=== PATIENT | female | born 1940 | race Two or more races ===

== ENCOUNTER 2019-05-06 07:38 | Inpatient (IN) | payer MEDICARE, MEDICAID ==
[~2019-05-06] VITALS: Ht 160 cm; Wt 79.8 kg
[2019-05-06] MEDS ORDERED: CELECOXIB 100 MG CAPSULE ONE (08:05)
[2019-05-06] MEDS ORDERED: ACETAMINOPHEN 325 MG TABLET ONE (08:05)
[2019-05-06] MEDS ORDERED: oxyCODONE HCL SR 10MG TAB.SR.12H PO ONE (08:05)
[2019-05-06] MEDS ORDERED: MIDAZOLAM HCL 2 MG/2ML VIAL ONE (08:39)
[2019-05-06] MEDS ORDERED: SCOPOLAMINE HBR 1 EA PATCH.TD72 TD ONE (08:40)
[2019-05-06] MEDS ORDERED: MORPHINE SULFATE/PF 10 MG/10ML (1MG/ML) AMPUL ONE (08:40)
[2019-05-06] MEDS ORDERED: TRANEXAMIC ACID 3,000 MG in SODIUM CHLORIDE IRRIG SOLUTION 70 ML IR ONE (09:00)
[2019-05-06] MEDS ORDERED: FENTANYL PF 100MCG/2ML AMPUL ONE (10:34)
[2019-05-06 12:00] VITALS: BP 111/59
[2019-05-06] MEDS ORDERED: MAGNESIUM HYDROXIDE 30 ML UDC PO PRN (12:00)
[2019-05-06] MEDS ORDERED: diphenhydrAMINE HCL 25 MG CAPSULE PO PRN (12:00)
[2019-05-06] MEDS ORDERED: MAG HYDROX/AL HYDROX/SIMETH 30 ML UDC PO PRN (12:00)
--- NOTE | 2019-05-06 12:00 | NUR ---
RN MS 1 NOTES Received report from at bedside. Patient is s/p R RALPH, A/O x 4. Singaporean speaking with some Tristanian. Verbally responsive and able to make needs know. No sob noted. In room air and saturating well. No skin issues other than the surgery site. No edema in both upper and lower extremities. Complain of pain, described it as squeezing especially when moving and rate it 2/10. IV line on R wrist @20, intact, patent and flushed well.
[2019-05-06] MEDS ORDERED: BISACODYL SUPP (10 MG) 10 MG/SUPP.RECT SUPP.RECT RC PRN (12:30)
[2019-05-06] MEDS ORDERED: DOCUSATE SODIUM 250 MG CAPSULE PO PRN (12:30)
[2019-05-06] MEDS ORDERED: ACETAMINOPHEN 325 MG TABLET PO PRN (12:30)
[2019-05-06] MEDS ORDERED: ZOLPIDEM TARTRATE 5 MG TABLET PO PRN (12:30)
[2019-05-06] MEDS ORDERED: NALOXONE HCL 0.4 MG/ML AMPUL IV PRN (12:30)
[2019-05-06] MEDS ORDERED: SENNOSIDES 8.6 MG TABLET PO PRN (12:30)
[2019-05-06] MEDS: IV LR 1000 ML 1,000 ML IV PRN (12:45)
[2019-05-06] MEDS ORDERED: DICL75TA5 PO (12:48)
[2019-05-06] MEDS ORDERED: ASPI-605 PO (12:48)
[2019-05-06] MEDS ORDERED: METF-440 PO (12:48)
[2019-05-06] MEDS ORDERED: ATOR20TA PO (12:48)
[2019-05-06] MEDS ORDERED: LISI-603 PO (12:48)
[2019-05-06] MEDS ORDERED: LINA290C PO (12:48)
[2019-05-06] MEDS ORDERED: SITA100T PO (12:48)
[2019-05-06] MEDS ORDERED: TIZA4TAB5 PO (12:48)
[2019-05-06] MEDS ORDERED: ZOLP5TAB8 PO (12:48)
[2019-05-06] MEDS ORDERED: OXYCOD/APAP PO (12:48)
[2019-05-06] MEDS ORDERED: MYRBETRIQ PO (12:48)
[2019-05-06] MEDS ORDERED: CHOL200059 PO (12:48)
[2019-05-06] MEDS ORDERED: DICL100G16 (12:48)
[2019-05-06] MEDS ORDERED: AMLO2.5T4 PO (12:48)
--- NOTE | 2019-05-06 13:23 | NUR ---
RN NOTE PAGED SU LOVELACE THROUGH [employer]CHANGE FOR ADMITTING ORDERS AND MED RECON
--- NOTE | 2019-05-06 14:00 | NUR ---
RN NOTE RECEIVED A CALL BACK FROM SU LOVELACE NP. PER EQUIPMENT OPERATOR WAGE HAND, HE WILL SEE PATIENT SOON HE GETS A CHANCE.
[2019-05-06 16:00] VITALS: BP 123/63
[2019-05-06] MEDS: CEFAZOLIN 1 GM in IV D5W 50 ML IV SCH (17:23)
--- NOTE | 2019-05-06 17:29 | NUR ---
RN NOTE WEIGHT BEARING STATUS WAS NOT INDICATED IN DR KELLEY'S ORDER FORM. PAGED SAUL LOZA, PER PA - OK WITH WBAT. ORDER CARRIED OUT
[2019-05-06] MEDS ORDERED: HYDR-4385 PO (18:38)
--- NOTE | 2019-05-06 19:13 | NUR ---
RN NOTES: RECEIVED AWAKE ON BED, A/OX4, UKRAINIAN SPEAKING, CAN COMMUNICATE IN BRITISH, ON RA, AMBULATORY, RW G#20,ON LR AT 75 ML/HR ONGOING. S/P RIGHT HIP ARTHROPLASTY TODAY,WBAT, ORIENTED TO UNIT AND STAFF, BED LOW AND LOCKED, CALL LIGHT WITHIN EASY REACH,FALL,SAFETY, AND ASPIRATION PRECAUTION OBSERVED,ON RA SPO2-92%, KEEP ON CLOSE WATCH, NEEDS ANTICIPATED.FOR PT EVALUATION IN THE MORNING, SAI TO START TOMORROW AND REMOVE HERRERA CATH 05/07/19.
--- NOTE | 2019-05-06 19:15 | NUR ---
RN CLOSING NOTES Pt in bed, awake and A/0 x4. Moroccan speaking with limited Tamazight.No acute change of condition during am shift. All needs met. Pt endorsed to pm shift for continuity of care. Call light within reach.
[2019-05-06 20:00] VITALS: BP 129/64
[2019-05-06] MEDS: oxyCODONE IR immediate release 5 MG PO PRN (22:51)
--- NOTE | 2019-05-06 22:51 | NUR ---
RN NOTES: STILL AWAKE, ASSESSED IF SHE IS IN PAIN, SHE VERBALIZED 7/10 ON THE RIGHT HIP, OFFERED TO TAKE PAIN MEDICATION, SHE AGREED, BP-130/68, NON PHARMACOLOGIC INTERVENTION RENDERED, WARM BLANKET PROVIDED.
[2019-05-07] VITALS (7 sets, daily range): BP systolic 113–153; BP diastolic 54–75
[2019-05-07] MEDS: CEFAZOLIN 1 GM in IV D5W 50 ML IV SCH (01:23)
[2019-05-07] MEDS: IV LR 1000 ML 1,000 ML IV PRN (01:31)
--- NOTE | 2019-05-07 02:30 | NUR ---
RN NOTES: ABLE TO SLEEP AND REST, CALL LIGHT IWTHIN EASY REACH, KEPT MONITORED.
[2019-05-07] MEDS: oxyCODONE IR immediate release 5 MG PO PRN ×5 (04:12→18:26)
--- NOTE | 2019-05-07 04:17 | NUR ---
RN NOTES: AWAKE PAIN 11/10, REQUEST FOR HER PAIN MEDICATION, BP-113/54, NON PHARMACOLOGIC INTERVENTION RENDERED.
--- NOTE | 2019-05-07 06:39 | NUR ---
RN NOTES: ASLEEP IN BETWEEN, LATEST WEIGHT-172, NO SOB, PLEASANT MOOD AND COOPERATIVE,HERRERA OUTPUT-300CC.
--- NOTE | 2019-05-07 07:00 | NUR ---
RN INITIAL NOTE PATIENT IN BED, AWAKE AND ALERT. NO COMPLAINS OF ANY PAIN NOR SOB. BED LOCKED AND IN LOWEST POSITION. CALL LIGHT WITHIN REACH, WILL CONTINUE TO MONITOR
--- NOTE | 2019-05-07 07:37 | NUR ---
RN NOTES: KEEP ON MONITORED, FALL,SAFETY AND ASPIRATION PRECAUTION OBSERVED, ENDORSED FOR CONTINUITY OF CARE.
[2019-05-07] MEDS: ASPIRIN EC 81 MG TABLET.DR PO SCH (08:26)
[2019-05-07] MEDS: AMLODIPINE BESYLATE 2.5 MG TABLET PO SCH (08:27)
[2019-05-07] MEDS: CHOLECALCIFEROL 1,000 UNIT TABLET (VIT D3) PO SCH (08:27)
[2019-05-07] MEDS: LISINOPRIL (20MG) 20 MG TABLET PO SCH (08:27)
[2019-05-07] MEDS ORDERED: MYRBETRIQ 50 MG PO SCH (09:00)
[2019-05-07] MEDS: RIVAROXABAN 10 MG TABLET PO SCH (09:02)
[2019-05-07 10:04] LABS: BASOPHILS % (AUTO) 0.5 % (0.0-2.0); EOSINOPHILS % (AUTO) 0.2 % (0.0-6.0); HEMATOCRIT 32 % (33-45); LYMPHOCYTES % (AUTO) 19.6 % (20.0-44.0); MEAN CORPUSCULAR HGB CONC 35 g/dl (31.0-36.0); MEAN CORPUSCULAR VOLUME 92 fL (82-100); MONOCYTES # (AUTO) 1.5 /CMM (0.1-1.30); MONOCYTES % (AUTO) 14.5 % (2.0-12.0); NEUTROPHILS # (AUTO) 6.6 /CMM (1.8-8.9); NEUTROPHILS % (AUTO) 65.2 % (43.0-81.0); PLATELET COUNT (AUTO) 224 /CMM (150-450); RED BLOOD CELL COUNT(AUTO) 3.48 MIL/uL (4.0-5.2); WHITE BLOOD COUNT (AUTO) 10.1 K/uL (4.3-11.0)
[2019-05-07 10:11] LABS: CALCIUM, SERUM 8.4 mg/dL (8.5-10.1); CREATININE 0.7 mg/dL (0.6-1.3); POTASSIUM 3.9 mmol/L (3.5-5.1)
[2019-05-07] MEDS: HYDROMORPHONE 1 MG/1 ML DISP.SYRIN SQ PRN ×3 (10:43→22:00)
--- NOTE | 2019-05-07 11:08 | NUR ---
RN NOTE PAGED PT, WILL SEE PATIENT TODAY
--- NOTE | 2019-05-07 15:10 | NUR ---
RN NOTE PATIENT REFUSED TO TAKE THE HERRERA OUT. PER PATIENT, "IT IS SO HARD TO GO TO THE BATHROOM. IT IS VERY PAINFUL, ESPECIALLY TONIGHT. WE CAN REMOVE IT TOMORROW MORNING."
--- NOTE | 2019-05-07 15:46 | NUR ---
RN NOTE PATIENT REQUESTED FOR PAIN MEDICATION. PULLED OUT OXY IR, PATIENT REFUSED AND SAID SHE WANTED AN IV DILAUDID INSTEAD. WASTED OXY IR WITH RENALDO AMADO WITNESS. ADMINISTERED IV DILAUDID
--- NOTE | 2019-05-07 15:57 | NUR ---
RN NOTE ASKED THE PATIENT IF SHE WANTS TO TAKE MEDICATION FOR CONSTIPATION. PATIENT REFUSED AND SAID SHE WILL TRY PRUNE JUICE FOR NOW. TRANSLATED BY INGRIS SEN. PATIENT AGREED TO REMOVE THE HERRERA CATHETER AND HAVE DIAPER ON INSTEAD. IV SITE LEAKING AND WILL REINSERT A NEW ONE
--- NOTE | 2019-05-07 16:52 | NUR ---
RN NOTE HERRERA CATHETER HAS BEEN REMOVED
[2019-05-07] MEDS: ONDANSETRON HCL/PF 4 MG/2 ML VIAL IV PRN ×2 (17:55→22:01)
--- NOTE | 2019-05-07 18:53 | NUR ---
RN CLOSING NOTE PATIENT IN BED, AWAKE AND ALERT. UZBEK SPEAKING, SPEAKS AND UNDERSTANDS A LITTLE ESTONIAN. PATIENT WAS GIVEN PAIN MEDICATIONS ROUND THE CLOCK. PT REFUSED STOOL SOFTENER. HERRERA CATH WAS REMOVED. ALL NEEDS MET. ALL MEDS GIVEN. WILL ENDORSE TO NOC SHIFT RN FOR ROYA
--- NOTE | 2019-05-07 20:37 | NUR ---
recieved still with comlaints of pain to the operativ site. attempted to get put of bed but assited bck to bed, informed that the medication is not yet due. with call light within reach,placed on bed alarm , not voided yet
--- NOTE | 2019-05-07 21:00 | NUR ---
asleep currently.placed on bed alarrm for safetymas patien is unable to follow instructions,
--- NOTE | 2019-05-07 21:31 | NUR ---
patient family in and wants the patient to be ambulated as she wants to have a bm in the [facility],explained that the patient cannot yet go to the bathroom,.requested to call the physician and will call. will wait for the charge nurse to come
[2019-05-07] MEDS ORDERED: ATORVASTATIN 10 MG TABLET PO SCH (22:00)
--- NOTE | 2019-05-07 22:01 | NUR ---
dilaudid dose givne for severe pain as patient is nauseated and vomiting. heart rate 111/min.. sat 93% on 02 at 2 liter. will inform SDr sobeck about the heart rate,
--- NOTE | 2019-05-07 22:21 | NUR ---
family desires the patient to go to the [facility] to void. charge urse will help. patient hr still high 111/min,
--- NOTE | 2019-05-07 22:28 | NUR ---
MS RN NOTE PT WANTS TO URINATE BUT REFUSING TO USE BED GARDINER. CALLED LOY BOOTH ACCORDING TO HER PT OK TO USE BSC LONG PT KEEPS HER SELF 90 DEGREE RUBÉN. FAMILY ALSO AT BED SIDE. TRANSLATED TO THE PT. ASSISTED PT WITH FWW AND TWO SURGICAL INSTRUMENT TECHNICIAN ASSIST TRANSFERRED THE PT TO BSC. PT ABLE TO TOLERATED FAIRLY. PT ALSO ABLE TO URINATE WITHOUT ANY DIFFICULTY.
--- NOTE | 2019-05-07 22:48 | NUR ---
on bed after the patient was ambulaed to the bathroom and voided freely.no bm noted, tolerated the procedure. no further naausea and vomiting noted
[2019-05-08] MEDS: oxyCODONE IR immediate release 5 MG PO PRN ×4 (02:19→15:07)
[2019-05-08 02:21] VITALS: BP 173/87
[2019-05-08 04:00] VITALS: BP 158/75
[2019-05-08 07:11] VITALS: BP 163/93
[2019-05-08 08:00] VITALS: BP 152/90
[2019-05-08] MEDS: ASPIRIN EC 81 MG TABLET.DR PO SCH (08:39)
[2019-05-08] MEDS: AMLODIPINE BESYLATE 2.5 MG TABLET PO SCH (08:40)
[2019-05-08] MEDS: LISINOPRIL (20MG) 20 MG TABLET PO SCH (08:40)
[2019-05-08] MEDS: CHOLECALCIFEROL 1,000 UNIT TABLET (VIT D3) PO SCH (08:40)
[2019-05-08] MEDS ORDERED: ACET325T53 PO (13:01)
[2019-05-08] MEDS ORDERED: OXYC5CAP18 PO (13:01)
[2019-05-08] MEDS ORDERED: RIVA10TA PO (13:01)
--- NOTE | 2019-05-08 14:19 | NUR ---
alert, oriented, appropriate, no complaint of pain at this time when first seen. did not eat breakfast, " dont like your hospital food, only asked for juices, given. PT walked with the patient, and patient can walk to bathroom with supervision. 11am, asked for pain meds, given x 1. OXYCODONE 10 mg , with relief is to go to [facility], report given to Velma, case assistant to take care of ambulance warp picker. Patient made aware of the transfer.
--- NOTE | 2019-05-08 14:31 | NUR ---
Bee, next-to-kin , unable to reach, message left. got her XARELTO prior to leaving for the rehab
[2019-05-08] MEDS: RIVAROXABAN 10 MG TABLET PO SCH (15:02)
--- NOTE | 2019-05-08 15:13 | NUR ---
insists she have another 10mg po oxycodone before leaving the floor, given
[2019-05-08 16:00] VITALS: BP 140/76
== END 2019-05-08 18:47 | DRG 470 ==
LOC: DS 07:38 → MEDSG1 12:07
PROVIDERS: ADMIT Nurse Practitioner Acute Care; ATTEND Nurse Practitioner Acute Care
PROC: 0SR90JZ Replacement of Right Hip Joint with Synthetic Substitute, Open Approach (ICD-10-PCS; principal; 2019-05-06)
DX: M16.11 Unilateral primary osteoarthritis, right hip (principal); I10 Essential (primary) hypertension; G89.4 Chronic pain syndrome; E11.9 Type 2 diabetes mellitus without complications; E78.00 Pure hypercholesterolemia, unspecified; K58.9 Irritable bowel syndrome, unspecified; K29.70 Gastritis, unspecified, without bleeding; G47.00 Insomnia, unspecified; Z79.82 Long term (current) use of aspirin; Z79.84 Long term (current) use of oral hypoglycemic drugs; Z79.899 Other long term (current) drug therapy; Z79.891 Long term (current) use of opiate analgesic
CPT/HCPCS: 36415; 80048-TC; 82962-TC; 85025-TC; 86850-TC; 86921-TC; 87081-TC; 88305-TC; 88311-TC; 97110-TC; 97116-TC; 97530-TC; A4217; A6209; C1776; G0378; J0690; J1100; J1170; J2250; J2274; J2405; J2704; J3010; J3490; J7060; J7120; Q0163

== ENCOUNTER 2024-03-15 06:12 | Inpatient (IN) | payer MEDICARE, OTHER ==
[~2024-03-15] VITALS: Ht 154.9 cm; Wt 78.9 kg
[~2024-03-15 06:12] MED LIST: ACET325T53 PO; AMLO2.5T4 PO; ASPI-605 PO; ATOR20TA PO; CHOL200059 PO; LINA290C PO; LISI20TA30 PO; METF-440 PO; MYRBETRIQ PO; OXYC5CAP18 PO; RIVA10TA PO; SITA100T PO; TIZA4TAB5 PO; ZOLP5TAB8 PO
[2024-03-15] MEDS ORDERED: POLYMYXIN B SULFATE 500,000 UNITS ONE (06:17)
[2024-03-15] MEDS ORDERED: BUPIVACAINE 0.5 % PF 150 MG/30 ML VIAL ONE (06:17)
[2024-03-15] MEDS ORDERED: FENTANYL PF 250MCG/5ML AMPUL ONE (06:49)
[2024-03-15] MEDS ORDERED: ROCURONIUM BROMIDE 50 MG/5 ML ONE (06:49)
[2024-03-15] MEDS ORDERED: SEVOFLURANE 250 ML BOTTLE IH ONE (07:54)
[2024-03-15] MEDS ORDERED: LABETALOL 20 MG/4 ML VIAL ONE (08:00)
[2024-03-15] MEDS ORDERED: TRANEXAMIC ACID 1,000 MG/10 ML VIAL ONE (08:29)
[2024-03-15] MEDS ORDERED: FENTANYL PF 100MCG/2ML AMPUL ONE (08:54)
[2024-03-15] MEDS ORDERED: MEPERIDINE25 MG SYR 25 MG/ML VIAL ONE (08:55)
[2024-03-15] MEDS ORDERED: HYDROMORPHONE 1 MG/1 ML DISP.SYRIN ONE (09:04)
[2024-03-15] MEDS ORDERED: HYDROMORPHONE INJ 2 MG/ML DISP.SYRIN ONE ×2 (09:11→09:23)
[2024-03-15] MEDS ORDERED: DOCUSATE SODIUM 250 MG CAPSULE PO PRN (09:30)
[2024-03-15] MEDS ORDERED: SENNOSIDES 8.6 MG TABLET PO PRN (09:30)
[2024-03-15] MEDS ORDERED: HYDROMORPHONE 1 MG/1 ML DISP.SYRIN IV PRN ×2 (09:30→11:30)
[2024-03-15] MEDS ORDERED: HYDROCODONE/APAP 5/325MG TABLET PO PRN (09:30)
[2024-03-15] MEDS ORDERED: MIDAZOLAM HCL 2 MG/2ML VIAL ONE (09:36)
[2024-03-15 10:25] VITALS: BP 148/71; TEMP 97.3; O2SAT 91
[2024-03-15] MEDS ORDERED: MEPERIDINE25 MG SYR 25 MG/ML VIAL IV STA (11:15)
[2024-03-15] MEDS ORDERED: FENTANYL PF 100MCG/2ML AMPUL IV STA (11:15)
[2024-03-15] MEDS ORDERED: HYDROMORPHONE INJ 2 MG/ML DISP.SYRIN IV PRN (11:30)
[2024-03-15] MEDS ORDERED: MIDAZOLAM HCL 2 MG/2ML VIAL IV ONE (11:30)
[2024-03-15] MEDS ORDERED: oxyCODONE HCL SR 20MG TAB.SR.12H PO ONE (12:38)
[2024-03-15] MEDS ORDERED: MENTHOL/CETYLPYRD (CEPACOL) 1 LOZ LOZENGE PO PRN (13:00)
[2024-03-15] MEDS ORDERED: diphenhydrAMINE HCL 25 MG CAPSULE PO PRN (13:00)
[2024-03-15] MEDS ORDERED: ONDANSETRON HCL/PF 4 MG/2 ML VIAL IV PRN (13:00)
[2024-03-15] MEDS ORDERED: MAG HYDROX/AL HYDROX/SIMETH 30 ML UDC PO PRN ×2 (13:00→22:30)
[2024-03-15] MEDS ORDERED: MAGNESIUM HYDROXIDE 30 ML UDC PO PRN ×2 (13:00→22:30)
[2024-03-15] MEDS: oxyCODONE HCL SR 10MG TAB.SR.12H PO STA (13:40)
[2024-03-15 16:00] VITALS: BP 152/90; TEMP 97.7; O2SAT 96
[2024-03-15] MEDS: ANCEF 1 GM/50 ML D5W IV SCH (16:05)
[2024-03-15] MEDS: DOCUSATE SODIUM 100 MG CAPSULE PO SCH (17:35)
[2024-03-15] MEDS: oxyCODONE IR immediate release 5 MG TABLET PO PRN (17:35)
[2024-03-15] MEDS ORDERED: oxyCODONE IR immediate release 5 MG TABLET PO PRN (18:30)
[2024-03-15] MEDS ORDERED: ZOLPIDEM TARTRATE 5 MG TABLET PO PRN (18:30)
[2024-03-15] MEDS ORDERED: OXYC10TA59 PO (19:24)
[2024-03-15] MEDS ORDERED: ESZO2TAB31 PO (19:24)
[2024-03-15] MEDS ORDERED: CHOL500062 PO (19:24)
[2024-03-15] MEDS ORDERED: OLME20TA23 PO (19:24)
[2024-03-15] MEDS ORDERED: FOLI0.8C PO (19:24)
[2024-03-15] MEDS ORDERED: OLME5TAB3 PO (19:24)
[2024-03-15] MEDS ORDERED: METO25TA6 PO (19:24)
[2024-03-15] MEDS ORDERED: GABA-532 PO (19:24)
[2024-03-15] MEDS ORDERED: OXYC1TAB12 PO (19:24)
[2024-03-15] MEDS: IV LR 1000 ML 1,000 ML IV PRN (19:56)
[2024-03-15] MEDS: oxyCODONE HCL SR 10MG TAB.SR.12H PO SCH (20:15)
[2024-03-15] MEDS ORDERED: FAMOTIDINE (20 MG) 20 MG TABLET PO SCH (21:00)
[2024-03-15 21:11] VITALS: BP 167/70; TEMP 98.1; O2SAT 94
[2024-03-15] MEDS: ATORVASTATIN 10 MG TABLET PO SCH (21:43)
[2024-03-15] MEDS: HYDROMORPHONE 1 MG/1 ML DISP.SYRIN IM/IV/SC PRN (21:44)
[2024-03-15] MEDS ORDERED: Z GUARD REMEDY 4 OZ OINT TP PRN (22:30)
[2024-03-15] MEDS ORDERED: ONDANSETRON HCL/PF 4 MG/2 ML VIAL IVP PRN (22:30)
[2024-03-16] MEDS: ACETAMINOPHEN 325 MG TABLET PO PRN (03:30)
[2024-03-16] MEDS: LORAZEPAM 0.5 MG TABLET PO PRN (03:35)
[2024-03-16 06:27] LABS: BASOPHILS % (AUTO) 0.2 % (0.0-2.0); HEMATOCRIT 33 % (33-45); HEMOGLOBIN 11.4 g/dL (11.5-14.8); LYMPHOCYTES # (AUTO) 1.2 K/uL (0.8-4.8); LYMPHOCYTES % (AUTO) 8.1 % (20.0-44.0); MEAN CORPUSCULAR HEMOGLOBIN 29 PG (26.0-33.0); MEAN CORPUSCULAR HGB CONC 34 g/dl (31.0-36.0); MEAN CORPUSCULAR VOLUME 86 fL (82-100); MONOCYTES # (AUTO) 1.6 K/uL (0.1-1.30); MONOCYTES % (AUTO) 11.2 % (2.0-12.0); NEUTROPHILS # (AUTO) 11.5 K/uL (1.8-8.9); NEUTROPHILS % (AUTO) 80.5 % (43.0-81.0); PLATELET COUNT (AUTO) 271 K/uL (150-450); RED BLOOD CELL COUNT(AUTO) 3.88 MIL/uL (4.0-5.2); WHITE BLOOD COUNT (AUTO) 14.3 K/uL (4.3-11.0)
[2024-03-16 06:51] LABS: CALCIUM, SERUM 8.8 mg/dL (8.5-10.1); CARBON DIOXIDE 26 mmol/L (21-32); CHLORIDE 105 mmol/L (98-107); CREATININE 0.6 mg/dL (0.6-1.3); GLUCOSE 126 mg/dL (74-106); MAGNESIUM 1.8 mg/dL (1.8-2.4); POTASSIUM 3.7 mmol/L (3.5-5.1); SODIUM SERUM 142 mmol/L (136-145); UREA NITROGEN, BLOOD 16 mg/dL (7-18)
[2024-03-16 08:00] VITALS: BP 169/76; TEMP 97.5; O2SAT 93
[2024-03-16] MEDS: METFORMIN 500 MG TABLET PO SCH (08:40)
[2024-03-16] MEDS: CHOLECALCIFEROL 1,000 UNIT TABLET (VIT D3) PO SCH (08:40)
[2024-03-16] MEDS: LISINOPRIL (20MG) 20 MG TABLET PO SCH (08:40)
[2024-03-16] MEDS: LINAGLIPTIN 5 MG TABLET PO SCH (08:40)
[2024-03-16] MEDS: ASPIRIN EC 81 MG TABLET.DR PO SCH (08:40)
[2024-03-16] MEDS: TIZANIDINE HCL 4 MG TABLET PO SCH (08:40)
[2024-03-16] MEDS: AMLODIPINE BESYLATE 2.5 MG TABLET PO SCH (08:41)
[2024-03-16 16:00] VITALS: BP 143/60; TEMP 98.4; O2SAT 95
[2024-03-16] MEDS: RIVAROXABAN 10 MG TABLET PO SCH (16:51)
[2024-03-17 07:30] VITALS: BP 143/57; TEMP 99.1; O2SAT 92
[2024-03-17] MEDS: (Linaclotide (Linzess) 290 MCG) PO SCH (12:16)
[2024-03-17 16:00] VITALS: BP 153/68; TEMP 99.7; O2SAT 95
[2024-03-17 20:00] VITALS: BP 122/45; TEMP 98.2; O2SAT 96
[2024-03-18 07:30] VITALS: BP 175/75; TEMP 98.8; O2SAT 93
[2024-03-18 10:32] LABS: BASOPHILS % (AUTO) 0.3 % (0.0-2.0); EOSINOPHILS % (AUTO) 0.2 % (0.0-6.0); HEMATOCRIT 33 % (33-45); HEMOGLOBIN 10.7 g/dL (11.5-14.8); LYMPHOCYTES # (AUTO) 1.1 K/uL (0.8-4.8); LYMPHOCYTES % (AUTO) 9.7 % (20.0-44.0); MEAN CORPUSCULAR HEMOGLOBIN 29 PG (26.0-33.0); MEAN CORPUSCULAR HGB CONC 33 g/dl (31.0-36.0); MEAN CORPUSCULAR VOLUME 89 fL (82-100); MONOCYTES # (AUTO) 1.1 K/uL (0.1-1.30); MONOCYTES % (AUTO) 9.1 % (2.0-12.0); NEUTROPHILS # (AUTO) 9.5 K/uL (1.8-8.9); NEUTROPHILS % (AUTO) 80.7 % (43.0-81.0); PLATELET COUNT (AUTO) 246 K/uL (150-450); RED BLOOD CELL COUNT(AUTO) 3.66 MIL/uL (4.0-5.2); RED CELL DISTRIBUTION WIDTH 14.2 % (11.5-15.0); WHITE BLOOD COUNT (AUTO) 11.8 K/uL (4.3-11.0)
[2024-03-18 16:00] VITALS: BP 139/61; TEMP 98.4; O2SAT 91
[2024-03-18 20:00] VITALS: BP 129/46; TEMP 98.2; O2SAT 92
[2024-03-19 08:00] VITALS: BP 174/83; TEMP 98.4; O2SAT 94
[2024-03-19] MEDS: MYRBETRIQ 50 MG PO SCH (08:35)
[2024-03-19 16:00] VITALS: BP 161/78; TEMP 98.2; O2SAT 94
[2024-03-19 16:50] VITALS: BP 161/78
[2024-03-19] MEDS: hydrALAZINE HCL 25 MG TABLET PO PRN (16:50)
== END 2024-03-19 17:57 | DRG 469 ==
LOC: DS 06:12 → MED 06:13 → DS 18:27 → MED 23:38
PROVIDERS: ADMIT Internal Medicine; ATTEND Internal Medicine
PROC: 0SRB0JZ Replacement of Left Hip Joint with Synthetic Substitute, Open Approach (ICD-10-PCS; principal; 2024-03-15)
DX: M16.12 Unilateral primary osteoarthritis, left hip (principal); J96.00 Acute respiratory failure, unspecified whether with hypoxia or hypercapnia; I10 Essential (primary) hypertension; E11.9 Type 2 diabetes mellitus without complications; I25.10 Atherosclerotic heart disease of native coronary artery without angina pectoris; F41.9 Anxiety disorder, unspecified; Z79.891 Long term (current) use of opiate analgesic; G47.00 Insomnia, unspecified; E78.00 Pure hypercholesterolemia, unspecified
CPT/HCPCS: 36415; 71045-TC; 80048-TC; 82962-TC; 83735-TC; 84100-TC; 85025-TC; 87081-TC; 94799-TC; 97110-TC; 97116-TC; 97530-TC; 97535-TC; A4217; A6209; A6253; A6402; C1776; G0378; J0461; J0690; J1100; J1171; J2175; J2250; J2704; J3010; J3490; J7030; J7040; J7050; J7060; J7120